=== PATIENT | male | born 1950 | race African-American/Black ===

== ENCOUNTER 2017-02-10 11:27 | Emergency (ER) | payer MEDICARE, OTHER ==
[~2017-02-10 11:27] MED LIST: *UNABLE2; DENIES HOME MEDS; FERROUS SULF325 M1 PO; HALF81 PO; LOP25 PO; PRILO PO; PRIN10 PO; PRIN5 PO; THERA M PLUS PO
[2017-02-10 12:09] LABS: BASOPHILS 0.1 %; BASOPHILS ABSOLUTE 0.02 10/3/uL (0.0-0.16); EOSINOPHILS 0.3 %; EOSINOPHILS ABSOLUTE 0.05 10/3/uL (0.0-0.53); HEMATOCRIT 39.8 % (40.0-51.0); HEMOGLOBIN 13.4 g/dL (13.6-17.8); IMMATURE GRANULOCYTES 0.3 %; IMMATURE GRANULOCYTES ABSOLUTE 0.05 10/3/uL (0.0-0.11); LYMPHOCYTES 15.7 %; LYMPHOCYTES ABSOLUTE 2.27 10/3/uL (0.67-4.30); MEAN CORPUS HGB CONC 33.7 g/dL (32.0-36.0); MEAN CORPUSCULAR HEMOGLOB 28.2 pg (26.0-34.0); MEAN PLATELET VOLUME 10.2 fL (9.2-13.0); MONOCYTES 9.3 %; MONOCYTES ABSOLUTE 1.34 10/3/uL (0.21-1.20); NEUTROPHILS 74.3 %; NEUTROPHILS ABSOLUTE 10.75 10/3/uL (2.02-8.40); PLATELET COUNT 202 10/3/uL (150-400); RBC DISTRIBUTION WIDTH 13.5 % (12.0-16.0); RED CELL COUNT 4.75 10/6/uL (4.7-6.1)
[2017-02-10 12:10] LABS: MANUAL DIFF NO %; MEAN CORPUSCULAR VOLUME 83.8 fL (80-100); WHITE BLOOD CELLS 14.5 10/3/uL (4.5-10.5)
[2017-02-10 12:57] LABS: BUN (BLOOD UREA NITROGEN) 14 MG/DL (6-23); CALCIUM, SERUM 8.6 MG/DL (8.5-10.4); CHLORIDE, SERUM 108 MMOL/L (96-112); CO2 (CARBON DIOXIDE) 24 MMOL/L (24-34); CREATININE 1.15 MG/DL (0.70-1.30); GFR AFRICAN AMERICAN 76 ML/MIN (>=60); GFR NON AFRICAN AMERICAN 65 ML/MIN (>=60); POTASSIUM, SERUM 4.4 MMOL/L (3.5-5.3); SGOT(AST) 7 U/L (5-40); SGPT(ALT) 15 U/L (5-65)
[2017-02-10 13:01] LABS: A/G RATIO 0.8 (0.7-1.9); ALBUMIN 3.3 G/DL (3.5-5.0); ALKALINE PHOSPHATASE 68 U/L (45-117); GLOBULIN 4.2 G/DL (2.5-4.1); GLUCOSE, SERUM 107 MG/DL (60-99); SODIUM, SERUM 141 MMOL/L (135-148); TOTAL BILIRUBIN 0.4 MG/DL (0-1.2); TOTAL PROTEIN 7.5 G/DL (6.0-8.5)
[2017-02-10 13:28] LABS: DIGOXIN 2.2 NG/ML (0.8-2.0)
== END 2017-02-10 15:22 | disposition home or self-care (01) ==
LOC: ER 11:27
PROVIDERS: Emergency Medicine
DX: T46.0X5A Adverse effect of cardiac-stimulant glycosides and drugs of similar action, initial encounter (principal); I48.91 Unspecified atrial fibrillation; I48.2 Chronic atrial fibrillation; J44.9 Chronic obstructive pulmonary disease, unspecified; I11.0 Hypertensive heart disease with heart failure; I50.9 Heart failure, unspecified; Z79.82 Long term (current) use of aspirin; Z79.899 Other long term (current) drug therapy
CPT/HCPCS: 80053; 80162; 85025; 93005; 99284

== ENCOUNTER 2017-03-17 17:25 | Inpatient (IN) | payer MEDICARE, OTHER ==
--- NOTE | ~2017-03-17 | DS ---
Discharge Summary [facility] [address] [place]. [address] NAME: RUTH WALLER JR : 50 STATUS : ADM IN [facility]#: [id number] AGE: 67 ADM/REG DATE : 03/17/17 MR#: [id number] REPORT SERV DATE: 03/25/17 DICTATED BY: TOLU HARDIN DATE: 03/25/17 REPORT STATUS : Draft TRANSCRIBED BY: MODL DATE: 03/25/17 ADMISSION DATE: 03/17/2017 DISCHARGE DATE: 03/25/2017 FINAL HOSPITAL DIAGNOSES: 1. Pneumonia. 2. Atrial fibrillation. 3. History of Clostridium difficile colitis. 4. History of cardiomyopathy with systolic congestive heart failure, EF 30% to 35%. 5. Bilateral jwdgg-zeq-wcxf amputation. 6. Peripheral artery disease. CONSULTATIONS AND PROCEDURES: None. CURRENT PHYSICAL FINDINGS AND HPI: Please see dictated H and P by Dr. Ramey. In brief, the patient is a 67-year-old male, who presented with complaint of confusion, congestion, and nausea, diagnosed with pneumonia on admission. Vital signs at that time, BP was 131/94, which was his average blood pressure through the majority of this hospital stay. His temperature on presentation was 98.0, T-max here with a low of 99s, pulse rate was atrial fibrillation during his hospital stay, but were rate controlled in the 70s and 80s. Initial procalcitonin was 8.4, recheck on the 1.05. Initial creatinine was elevated at 1.45. The patient has been below 1.0 since the and no other significant electrolyte abnormalities were noted except for a low magnesium at presentation which was corrected. BNP was 312 on admission. Lactate was 2.4, hitting a high of 2.6 on the th and normal on the at 1.3. Initial white count was 15.8, reaching a high of 20.2 on the , it has subsequently declined since admission. Urine for strep antigen was negative. Legionella antigen was negative. Urinalysis showed no significant abnormalities. Blood cultures were negative at four days. No sputum culture was available for review. Initial chest x-ray was read as right basilar infiltrate. Followup chest x-ray on the showed improved infiltrate on the right. HOSPITAL COURSE: The patient was admitted for pneumonia. He was admitted to a monitored bed. Home medications were reviewed and dosed appropriately. Routine lab was drawn including a digoxin level, which was 1.1. He was given IV fluids, which corrected the slight elevation in his creatinine. He was placed on sliding scale insulin. His Glucophage was held. He was initially started on cefepime and vancomycin since he came from the long- term care facility. Blood cultures were drawn and negative at four days. He received a total of five days of vancomycin, seven days of IV cefepime. Serial lab work was followed and corrected as needed. I assumed his care on the . Repeat procalcitonin was improved. He was placed on a probiotic while he was on the antibiotics, starting on the . PT evaluated him for discharge, back to [facility] where he has been. On discussion with the patient, apparently the patient receives his medical care through the [facility], but on discussing his history of atrial fibrillation with the provider at [facility], he was apparently taken off his anticoagulants in 2014 secondary to fluctuating INR levels. The patient has been in chronic rate controlled atrial fib here and as far as I can determine, he has no direct contraindication to anticoagulation. It was Discharge Summary [address] [place]. [address] NAME: RUTH WALLER JR : 50 STATUS : ADM IN [facility]#: [id number] AGE: 67 ADM/REG DATE : 03/17/17 MR#: [id number] REPORT SERV DATE: 03/25/17 DICTATED BY: TOLU HARDIN DATE: 03/25/17 REPORT STATUS : Draft TRANSCRIBED BY: BRANDON DATE: 03/25/[address] him back on Eliquis with followup through his [facility] physician. The patient initially voiced a desire for placement at home, but on discussion with his family, there is not a caregiver they can be with him 15/05 and on discussion with his behavioral issues at the care facility, this does not seem like a practical solution. [facility] did agree to take him back and he will be discharged there later this evening. DISPOSITION: He is discharged back to [facility]. MEDICATIONS: New will be Eliquis 5 b.i.d. continue aspirin 325, Lanoxin 0.25, iron 325, Lopressor 25 b.i.d., Prilosec 20, Tylenol p.r.n., Colace p.r.n., Glucophage 500 with breakfast, Imodium p.r.n.. He received a full seven days of IV antibiotics here. He has had clinical resolution with decreased procalcitonin. No fever. No oxygen needs and improving chest x-ray. We would recommend chest x-ray, get followed up to complete resolution of his pneumonia. He has been tolerating p.o. well. There has been no signs of aspiration or swallowing difficulty. He is discharged back to [facility] for monitoring of his atrial fibrillation, chronic anticoagulations. Repeat chest x- ray in one week post treatment. DICTATED BY: Darien Petty/BRANDON Tolu Hardin M.D. / [id number] CC: Tolu Hardin M.D.
--- NOTE | ~2017-03-17 | HP ---
History And Physical [address] [place]. [address] NAME: RUTH WALLER JR : 50 STATUS : ADM IN [facility]#: [id number] AGE: 67 ADM/REG DATE : 03/17/17 MR#: [id number] REPORT SERV DATE: 03/17/17 DICTATED BY: RICHARD BHAKTA DATE: 03/17/17 REPORT STATUS : Draft TRANSCRIBED BY: MODL DATE: 03/17/17 DATE OF ADMISSION: 03/17/2017 CHIEF COMPLAINT: A 67-year-old male presenting with confusion, congestion, and nausea. HISTORY OF PRESENTING ILLNESS: The patient's history was obtained through careful interview with the patient and three sisters coupled with review of [facility] and [facility]. For about four days, the patient's primary complaint has been abdominal discomfort and nausea. He describes the abdominal pain in his midabdomen, a cramping quality, 6 to 7 out of 10 severity. It has been bothering him for four days, but when he came to the hospital, it finally resolved completely. Despite nausea, he has had no vomiting. He has had congestion in his chest for about a week, but no productive cough. No shortness of breath. No chest pain. He has had chills, but no fevers. No diarrhea. He has had lightheadedness and confusion. REVIEW OF SYSTEMS: Otherwise, a 14-point review of systems was obtained and was negative. PAST MEDICAL HISTORY: 1. Paroxysmal atrial fibrillation. 2. Pneumonia. 3. C diff colitis. 4. Ischemic cardiomyopathy with systolic congestive heart failure. Ejection fraction 30% to 35% in 10/2013. 5. Bilateral nweig-drc-osna amputation. 6. Peripheral arterial disease. 7. Alcoholism. 8. Coronary artery disease. 9. Pancreatitis. 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 PAST SURGICAL HISTORY: 1. Bilateral knee surgeries. 2. PEG tube, then removed. 3. Bilateral rxxgc-eeg-pbqh amputations. 4. Foot surgery. ALLERGIES: NO KNOWN DRUG ALLERGIES. SOCIAL HISTORY: Quit smoking. Quit alcohol. Resides at [facility] for about two years now. He is a of the [employer]. Gets around in a wheelchair. Has no biological children. History And Physical [address] [address] NAME: RUTH WALLER JR : 50 STATUS : ADM IN PAT#: [id number] AGE: 67 ADM/REG DATE : 03/17/17 MR#: [id number] REPORT SERV DATE: 03/17/17 DICTATED BY: RICHARD BHAKTA DATE: 03/17/17 REPORT STATUS : Draft TRANSCRIBED BY: MODL DATE: 03/17/17 FAMILY HISTORY: Hypertension. No heart disease. No cancer. No stroke. CURRENT MEDICATIONS: Include aspirin 325 mg p.o. daily, digoxin 0.25 mg p.o. daily, iron supplement, Imodium p.r.n., metformin 500 mg with breakfast, Lopressor 25 mg p.o. b.i.d., Prilosec 20 mg p.o. daily. PHYSICAL EXAMINATION: VITAL SIGNS: Temperature 98.2, pulse 110, blood pressure 131/94, respiratory rate 27, O2 saturation 98% on 2 L nasal cannula. GENERAL: An ill-appearing male, in no evidence of distress though. HEENT: Pupils equal, round, and reactive to light. No conjunctival pallor. No scleral icterus. Nares are patent. Oropharynx is clear of obstruction. Very dry mucous membranes. NECK: Trachea midline. No thyromegaly. LYMPH: No cervical lymphadenopathy. No supraclavicular lymphadenopathy. RESPIRATORY: The patient has diminished breath sounds in the right middle and base of lung with no focal egophony however, but increased rhonchi. No wheezes. No rales. The patient has a labored respiratory effort. CARDIOVASCULAR: Tachycardic. Regular rhythm. No murmurs, rubs, or gallops. No extremity edema is appreciated. ABDOMEN: Soft, nontender, nondistended. Normal bowel sounds auscultated throughout. No hepatosplenomegaly. DERMATOLOGICAL: Warm and dry extremities. No pallor. No cyanosis. PSYCHIATRIC: Normal affect. Good mood. Alert and oriented x3. LABORATORY DATA: White blood cell count 15.8, hemoglobin 15, hematocrit 45, platelets 186. Sodium 141, potassium 4.1, chloride 106, bicarb 30, BUN 19, creatinine 1.45, glucose 141, lipase 35. Troponin negative. INR 1.2. Urinalysis shows no evidence of infection, but 52 hyaline casts. STUDIES: Chest x-ray, by my own evaluation shows right lower lung and right middle lung pneumonia. ASSESSMENT AND PLAN: 1. Sepsis with encephalopathy, tachycardia, tachypnea, and white blood cell count of 15.8. Lactic acid pending. Check blood cultures. Place on IV antibiotics. 2. Facility-acquired pneumonia. Check blood cultures. Place on IV cefepime, IV vancomycin. 3. Acute kidney injury. Place on IV fluids. 4. Chronic systolic congestive heart failure. Ejection fraction 30% to 35%. Monitor volume status closely. KPL/MODL Richard Moon History And Physical [address] [address] NAME: RUTH WALLER : 50 STATUS : ADM IN [facility]#: [id number] AGE: 67 ADM/REG DATE : 03/17/17 MR#: [id number] REPORT SERV DATE: 03/17/17 DICTATED BY: RICHARD BHAKTA DATE: 03/17/17 REPORT STATUS : Draft TRANSCRIBED BY: MODNaima DATE: 03/17/17 Darien Bhakta / [id number] CC: Wilman Amezcua MD
[2017-03-17 17:53] LABS: BASOPHILS 0.1 %; BASOPHILS ABSOLUTE 0.01 10/3/uL (0.0-0.16); EOSINOPHILS 0 %; ER CBC TAT 0 Hrs 05 Mins; HEMOGLOBIN 14.8 g/dL (13.6-17.8); IMMATURE GRANULOCYTES 0.3 %; IMMATURE GRANULOCYTES ABSOLUTE 0.04 10/3/uL (0.0-0.11); LYMPHOCYTES 4.1 %; LYMPHOCYTES ABSOLUTE 0.64 10/3/uL (0.67-4.30); MEAN CORPUSCULAR HEMOGLOB 27.8 pg (26.0-34.0); MEAN CORPUSCULAR VOLUME 84.2 fL (80-100); MONOCYTES 9.1 %; MONOCYTES ABSOLUTE 1.43 10/3/uL (0.21-1.20); NEUTROPHILS 86.4 %; NEUTROPHILS ABSOLUTE 13.67 10/3/uL (2.02-8.40); PLATELET COUNT 186 10/3/uL (150-400); RBC DISTRIBUTION WIDTH 14.4 % (12.0-16.0); RED CELL COUNT 5.32 10/6/uL (4.7-6.1); WHITE BLOOD CELLS 15.8 10/3/uL (4.5-10.5)
[2017-03-17 17:54] LABS: HEMATOCRIT 44.8 % (40.0-51.0); MANUAL DIFF NO %
[2017-03-17 17:59] LABS: INTERNATIONAL NORMAL RATI 1.2 UNITS (-); PARTIAL THROMBO TIME 25.1 SEC (22.5-37.2)
[2017-03-17 18:00] LABS: PROTIME (NOT ORD) 14.7 SEC (12.0-14.5)
[2017-03-17 18:10] LABS: BUN (BLOOD UREA NITROGEN) 19 MG/DL (6-23); CALCIUM, SERUM 9.3 MG/DL (8.5-10.4); CHEST PAIN PROFILE TAT 0 Hrs 22 Mins; CHLORIDE, SERUM 106 MMOL/L (96-112); CO2 (CARBON DIOXIDE) 30 MMOL/L (24-34); CREATININE 1.45 MG/DL (0.70-1.30); GFR AFRICAN AMERICAN 57 ML/MIN (>=60); GFR NON AFRICAN AMERICAN 49 ML/MIN (>=60); GLUCOSE, SERUM 141 MG/DL (60-99); POTASSIUM, SERUM 4.1 MMOL/L (3.5-5.3); SODIUM, SERUM 141 MMOL/L (135-148); TROPONIN I <0.02 NG/ML (<0.05)
[2017-03-17] MEDS ORDERED: PRILO PO (19:18)
[2017-03-17] MEDS ORDERED: LOP25 PO (19:18)
[2017-03-17] MEDS ORDERED: GLUCPH PO (19:19)
[2017-03-17] MEDS ORDERED: FERROUS SULF325 M1 PO (19:19)
[2017-03-17] MEDS ORDERED: ASA5GR PO (19:19)
[2017-03-17] MEDS ORDERED: LAN25 PO (19:20)
[2017-03-17] MEDS ORDERED: IMOD PO (19:20)
[2017-03-17 19:23] LABS: ASCORBIC ACID (UR NOT ORDER) NEG (NEG); BILIRUBIN, URINE NEGATIVE (NEG); KETONE, URINE TRACE MG/DL (NEG); LEUKOCYTE ESTERASE(NOT OR NEG (NEG); NITRITE (URINE) NEG (NEG); WBC (NOT ORDERED) (RFLEX) 2 (0-5)
[2017-03-17 19:28] LABS: ER URINALYSIS TAT 0 Hrs 38 Mins
[2017-03-17 21:20] LABS: LACTATE 2.4 MMOL/L (0.3-2.4)
[2017-03-18 05:11] LABS: BASOPHILS 0 %; BASOPHILS ABSOLUTE 0.01 10/3/uL (0.0-0.16); EOSINOPHILS 0 %; HEMOGLOBIN 13.4 g/dL (13.6-17.8); IMMATURE GRANULOCYTES 0.5 %; IMMATURE GRANULOCYTES ABSOLUTE 0.11 10/3/uL (0.0-0.11); LYMPHOCYTES 6.8 %; LYMPHOCYTES ABSOLUTE 1.37 10/3/uL (0.67-4.30); MEAN CORPUS HGB CONC 33.8 g/dL (32.0-36.0); MEAN CORPUSCULAR HEMOGLOB 28.3 pg (26.0-34.0); MEAN CORPUSCULAR VOLUME 83.7 fL (80-100); MEAN PLATELET VOLUME 10.4 fL (9.2-13.0); MONOCYTES 11.9 %; NEUTROPHILS 80.8 %; NEUTROPHILS ABSOLUTE 16.33 10/3/uL (2.02-8.40); PLATELET COUNT 174 10/3/uL (150-400); RBC DISTRIBUTION WIDTH 14.3 % (12.0-16.0); RED CELL COUNT 4.73 10/6/uL (4.7-6.1); WHITE BLOOD CELLS 20.2 10/3/uL (4.5-10.5)
[2017-03-18 05:14] LABS: HEMATOCRIT 39.6 % (40.0-51.0); MANUAL DIFF NO %
[2017-03-18 05:17] LABS: INTERNATIONAL NORMAL RATI 1.4 UNITS (-); PARTIAL THROMBO TIME 38.4 SEC (22.5-37.2)
[2017-03-18 05:20] LABS: PROTIME (NOT ORD) 17.1 SEC (12.0-14.5)
[2017-03-18 05:43] LABS: ALBUMIN 3.1 G/DL (3.5-5.0); BUN (BLOOD UREA NITROGEN) 20 MG/DL (6-23); CHLORIDE, SERUM 108 MMOL/L (96-112); CO2 (CARBON DIOXIDE) 26 MMOL/L (24-34); CREATININE 1.31 MG/DL (0.70-1.30); GFR AFRICAN AMERICAN 65 ML/MIN (>=60); GFR NON AFRICAN AMERICAN 56 ML/MIN (>=60); GLUCOSE, SERUM 135 MG/DL (60-99); POTASSIUM, SERUM 3.8 MMOL/L (3.5-5.3); SGOT(AST) 8 U/L (5-40); SGPT(ALT) 13 U/L (5-65); SODIUM, SERUM 142 MMOL/L (135-148); TOTAL BILIRUBIN 0.7 MG/DL (0-1.2); TOTAL PROTEIN 6.4 G/DL (6.0-8.5); TROPONIN I 0.03 NG/ML (<0.05)
[2017-03-18 05:44] LABS: A/G RATIO 0.9 (0.7-1.9); ALKALINE PHOSPHATASE 52 U/L (45-117); CALCIUM, SERUM 8.1 MG/DL (8.5-10.4); GLOBULIN 3.3 G/DL (2.5-4.1); ULTRASENSITIVE TSH 0.975 MCIU/ML (0.358-3.740)
[2017-03-19 08:52] LABS: BASOPHILS 0.1 %; BASOPHILS ABSOLUTE 0.02 10/3/uL (0.0-0.16); EOSINOPHILS 1.3 %; EOSINOPHILS ABSOLUTE 0.21 10/3/uL (0.0-0.53); HEMATOCRIT 37.9 % (40.0-51.0); HEMOGLOBIN 12.7 g/dL (13.6-17.8); IMMATURE GRANULOCYTES 0.4 %; IMMATURE GRANULOCYTES ABSOLUTE 0.06 10/3/uL (0.0-0.11); LYMPHOCYTES 13.8 %; LYMPHOCYTES ABSOLUTE 2.28 10/3/uL (0.67-4.30); MEAN CORPUS HGB CONC 33.5 g/dL (32.0-36.0); MEAN CORPUSCULAR HEMOGLOB 27.9 pg (26.0-34.0); MEAN CORPUSCULAR VOLUME 83.3 fL (80-100); MEAN PLATELET VOLUME 10.5 fL (9.2-13.0); MONOCYTES 11.1 %; MONOCYTES ABSOLUTE 1.83 10/3/uL (0.21-1.20); NEUTROPHILS 73.3 %; NEUTROPHILS ABSOLUTE 12.14 10/3/uL (2.02-8.40); PLATELET COUNT 159 10/3/uL (150-400); RBC DISTRIBUTION WIDTH 14.3 % (12.0-16.0); RED CELL COUNT 4.55 10/6/uL (4.7-6.1); WHITE BLOOD CELLS 16.5 10/3/uL (4.5-10.5)
[2017-03-19 08:54] LABS: MANUAL DIFF NO %
[2017-03-19 09:08] LABS: CALCIUM, SERUM 8.5 MG/DL (8.5-10.4); CHLORIDE, SERUM 106 MMOL/L (96-112); CO2 (CARBON DIOXIDE) 27 MMOL/L (24-34); CREATININE 1.01 MG/DL (0.70-1.30); GFR AFRICAN AMERICAN 89 ML/MIN (>=60); GFR NON AFRICAN AMERICAN 77 ML/MIN (>=60); GLUCOSE, SERUM 118 MG/DL (60-99); POTASSIUM, SERUM 3.6 MMOL/L (3.5-5.3); SODIUM, SERUM 139 MMOL/L (135-148)
[2017-03-19 09:09] LABS: BUN (BLOOD UREA NITROGEN) 12 MG/DL (6-23)
[2017-03-20 05:08] LABS: BASOPHILS 0.1 %; BASOPHILS ABSOLUTE 0.02 10/3/uL (0.0-0.16); EOSINOPHILS 1.5 %; EOSINOPHILS ABSOLUTE 0.24 10/3/uL (0.0-0.53); HEMATOCRIT 35.6 % (40.0-51.0); IMMATURE GRANULOCYTES 0.4 %; IMMATURE GRANULOCYTES ABSOLUTE 0.06 10/3/uL (0.0-0.11); LYMPHOCYTES 11.8 %; LYMPHOCYTES ABSOLUTE 1.89 10/3/uL (0.67-4.30); MANUAL DIFF NO %; MEAN CORPUS HGB CONC 33.7 g/dL (32.0-36.0); MEAN CORPUSCULAR HEMOGLOB 28.1 pg (26.0-34.0); MEAN CORPUSCULAR VOLUME 83.4 fL (80-100); MEAN PLATELET VOLUME 10.6 fL (9.2-13.0); MONOCYTES 10.8 %; MONOCYTES ABSOLUTE 1.72 10/3/uL (0.21-1.20); NEUTROPHILS 75.4 %; NEUTROPHILS ABSOLUTE 12.07 10/3/uL (2.02-8.40); PLATELET COUNT 156 10/3/uL (150-400); RBC DISTRIBUTION WIDTH 14.2 % (12.0-16.0); RED CELL COUNT 4.27 10/6/uL (4.7-6.1)
[2017-03-20 05:18] LABS: BUN (BLOOD UREA NITROGEN) 12 MG/DL (6-23); CALCIUM, SERUM 8.4 MG/DL (8.5-10.4); CHLORIDE, SERUM 111 MMOL/L (96-112); CO2 (CARBON DIOXIDE) 26 MMOL/L (24-34); CREATININE 0.99 MG/DL (0.70-1.30); GFR AFRICAN AMERICAN 91 ML/MIN (>=60); GFR NON AFRICAN AMERICAN 78 ML/MIN (>=60); GLUCOSE, SERUM 141 MG/DL (60-99); POTASSIUM, SERUM 3.8 MMOL/L (3.5-5.3); SODIUM, SERUM 141 MMOL/L (135-148)
[2017-03-21 04:40] LABS: BASOPHILS 0.1 %; BASOPHILS ABSOLUTE 0.02 10/3/uL (0.0-0.16); EOSINOPHILS 1.9 %; EOSINOPHILS ABSOLUTE 0.25 10/3/uL (0.0-0.53); HEMATOCRIT 37.5 % (40.0-51.0); HEMOGLOBIN 12.6 g/dL (13.6-17.8); IMMATURE GRANULOCYTES 0.3 %; IMMATURE GRANULOCYTES ABSOLUTE 0.04 10/3/uL (0.0-0.11); LYMPHOCYTES 16.9 %; LYMPHOCYTES ABSOLUTE 2.27 10/3/uL (0.67-4.30); MEAN CORPUS HGB CONC 33.6 g/dL (32.0-36.0); MEAN CORPUSCULAR HEMOGLOB 27.9 pg (26.0-34.0); MEAN PLATELET VOLUME 10.7 fL (9.2-13.0); MONOCYTES 11.3 %; MONOCYTES ABSOLUTE 1.52 10/3/uL (0.21-1.20); NEUTROPHILS 69.5 %; NEUTROPHILS ABSOLUTE 9.37 10/3/uL (2.02-8.40); PLATELET COUNT 176 10/3/uL (150-400); RBC DISTRIBUTION WIDTH 14.1 % (12.0-16.0); RED CELL COUNT 4.52 10/6/uL (4.7-6.1); WHITE BLOOD CELLS 13.5 10/3/uL (4.5-10.5)
[2017-03-21 04:41] LABS: MANUAL DIFF NO %
[2017-03-21 04:52] LABS: BUN (BLOOD UREA NITROGEN) 9 MG/DL (6-23); CALCIUM, SERUM 8.7 MG/DL (8.5-10.4); CHLORIDE, SERUM 108 MMOL/L (96-112); CO2 (CARBON DIOXIDE) 28 MMOL/L (24-34); CREATININE 0.92 MG/DL (0.70-1.30); GFR AFRICAN AMERICAN 99 ML/MIN (>=60); GFR NON AFRICAN AMERICAN 86 ML/MIN (>=60); GLUCOSE, SERUM 129 MG/DL (60-99); POTASSIUM, SERUM 3.7 MMOL/L (3.5-5.3); SODIUM, SERUM 143 MMOL/L (135-148)
[2017-03-22 05:34] LABS: BASOPHILS 0.1 %; BASOPHILS ABSOLUTE 0.02 10/3/uL (0.0-0.16); EOSINOPHILS 2.3 %; EOSINOPHILS ABSOLUTE 0.32 10/3/uL (0.0-0.53); HEMATOCRIT 35.2 % (40.0-51.0); HEMOGLOBIN 11.9 g/dL (13.6-17.8); IMMATURE GRANULOCYTES 0.6 %; IMMATURE GRANULOCYTES ABSOLUTE 0.08 10/3/uL (0.0-0.11); LYMPHOCYTES 15.2 %; LYMPHOCYTES ABSOLUTE 2.15 10/3/uL (0.67-4.30); MANUAL DIFF NO %; MEAN CORPUS HGB CONC 33.8 g/dL (32.0-36.0); MEAN CORPUSCULAR HEMOGLOB 27.7 pg (26.0-34.0); MEAN CORPUSCULAR VOLUME 81.9 fL (80-100); MEAN PLATELET VOLUME 10.3 fL (9.2-13.0); MONOCYTES 13.6 %; MONOCYTES ABSOLUTE 1.93 10/3/uL (0.21-1.20); NEUTROPHILS 68.2 %; NEUTROPHILS ABSOLUTE 9.64 10/3/uL (2.02-8.40); PLATELET COUNT 196 10/3/uL (150-400); WHITE BLOOD CELLS 14.1 10/3/uL (4.5-10.5)
[2017-03-22 06:01] LABS: DIGOXIN 1.1 NG/ML (0.8-2.0)
[2017-03-22 07:07] LABS: PROCALCITONIN 1.05 ng/mL (<0.5)
[2017-03-23 05:35] LABS: BASOPHILS 0.1 %; BASOPHILS ABSOLUTE 0.01 10/3/uL (0.0-0.16); EOSINOPHILS 2.7 %; EOSINOPHILS ABSOLUTE 0.34 10/3/uL (0.0-0.53); HEMATOCRIT 33.9 % (40.0-51.0); HEMOGLOBIN 11.6 g/dL (13.6-17.8); IMMATURE GRANULOCYTES 0.7 %; IMMATURE GRANULOCYTES ABSOLUTE 0.09 10/3/uL (0.0-0.11); LYMPHOCYTES 22.3 %; LYMPHOCYTES ABSOLUTE 2.82 10/3/uL (0.67-4.30); MEAN CORPUS HGB CONC 34.2 g/dL (32.0-36.0); MEAN CORPUSCULAR VOLUME 81.7 fL (80-100); MEAN PLATELET VOLUME 10.1 fL (9.2-13.0); MONOCYTES 10.8 %; MONOCYTES ABSOLUTE 1.37 10/3/uL (0.21-1.20); NEUTROPHILS 63.4 %; NEUTROPHILS ABSOLUTE 8.01 10/3/uL (2.02-8.40); PLATELET COUNT 196 10/3/uL (150-400); RBC DISTRIBUTION WIDTH 13.8 % (12.0-16.0); RED CELL COUNT 4.15 10/6/uL (4.7-6.1); WHITE BLOOD CELLS 12.6 10/3/uL (4.5-10.5)
[2017-03-23 05:37] LABS: MANUAL DIFF NO %
[2017-03-23 05:46] LABS: BUN (BLOOD UREA NITROGEN) 8 MG/DL (6-23); CALCIUM, SERUM 8.7 MG/DL (8.5-10.4); CHLORIDE, SERUM 108 MMOL/L (96-112); CO2 (CARBON DIOXIDE) 25 MMOL/L (24-34); GFR AFRICAN AMERICAN 107 ML/MIN (>=60); GFR NON AFRICAN AMERICAN 92 ML/MIN (>=60); GLUCOSE, SERUM 152 MG/DL (60-99); POTASSIUM, SERUM 3.7 MMOL/L (3.5-5.3); SODIUM, SERUM 141 MMOL/L (135-148)
[2017-03-24 11:22] LABS: BUN (BLOOD UREA NITROGEN) 9 MG/DL (6-23); CALCIUM, SERUM 9.1 MG/DL (8.5-10.4); CHLORIDE, SERUM 108 MMOL/L (96-112); CO2 (CARBON DIOXIDE) 26 MMOL/L (24-34); CREATININE 0.91 MG/DL (0.70-1.30); GFR AFRICAN AMERICAN 101 ML/MIN (>=60); GFR NON AFRICAN AMERICAN 87 ML/MIN (>=60); GLUCOSE, SERUM 153 MG/DL (60-99); POTASSIUM, SERUM 3.9 MMOL/L (3.5-5.3); SODIUM, SERUM 140 MMOL/L (135-148)
[2017-03-25] MEDS ORDERED: T PO (12:17)
[2017-03-25] MEDS ORDERED: DSS PO (12:22)
== END 2017-03-25 17:00 | disposition home or self-care (01) | DRG 871 ==
LOC: ER 17:25 → 2SO 19:32
PROVIDERS: Hospitalist; Internal Medicine; Nurse Practitioner; Student in an Organized Health Care Education/Training Program
DX: A41.9 Sepsis, unspecified organism (principal); G93.41 Metabolic encephalopathy; N17.9 Acute kidney failure, unspecified; I48.0 Paroxysmal atrial fibrillation; I50.22 Chronic systolic (congestive) heart failure; J18.9 Pneumonia, unspecified organism; R65.20 Severe sepsis without septic shock; I25.5 Ischemic cardiomyopathy; I73.9 Peripheral vascular disease, unspecified; F10.21 Alcohol dependence, in remission; I25.10 Atherosclerotic heart disease of native coronary artery without angina pectoris; Z89.512 Acquired absence of left leg below knee; Z89.511 Acquired absence of right leg below knee; Z86.73 Personal history of transient ischemic attack (TIA), and cerebral infarction without residual deficits; Z98.890 Other specified postprocedural states; Z87.891 Personal history of nicotine dependence; Z82.49 Family history of ischemic heart disease and other diseases of the circulatory system
CPT/HCPCS: 71010; 80048; 80053; 80162; 80202; 81001; 82962; 83605; 83690; 83735; 83880; 84145; 84443; 84484; 85025; 85610; 85730; 87040; 87449; 93005; 96365; 96375; 97110-GP; 97161-GP; 99285; A9270-GY; G8978-CL-GP; G8979-CL-GP; J0456; J0692; J2405; J3370; J3475